=== PATIENT | female | born 1955 | race Caucasian/White ===

== ENCOUNTER 2025-03-16 08:53 | Day surgery (SDC) | payer MEDICARE, OTHER ==
[~2025-03-16] VITALS: Ht 170.2 cm; Wt 87.7 kg
[~2025-03-16 08:53] MED LIST: CeFAZolin Sodium 2,000 MG VIAL ONE
[2025-03-16] MEDS ORDERED: ROSUVASTATIN CA20 MG PO (09:05)
[2025-03-16] MEDS ORDERED: NS 500 ML IV ONE (09:22)
--- NOTE | 2025-03-16 09:44 | NUR ---
03/16/25 0944 Clarisse Villalpando TIME OUT DONE PRIOR TO LOCAL INJECTION WITH DR BROWN. LIDOCAINE 1% WITH EPI 1:100,000 AT OP SITE.
[2025-03-16] MEDS ORDERED: Sodium Bicarb 8.4% Inj 1 MEQ/ML 10ML Vial XX ONE (10:15)
[2025-03-16] MEDS ORDERED: Lidocaine 1%-Epineph 1:100000 20 ML MDV INJ ONE (10:15)
[2025-03-16 10:24] VITALS: BP 104/59
--- NOTE | 2025-03-16 10:50 | NUR ---
03/16/25 1050 SONYA BANKS AT [facility] FOR [facility] TEACHING
== END 2025-03-16 10:51 | disposition home or self-care (01) ==
LOC: ORSCSDS 08:53
PROVIDERS: Orthopaedic Surgery
PROC: 0LN70ZZ Release Right Hand Tendon, Open Approach (ICD-10-PCS; principal; 2025-03-16 09:45)
DX: M65.342 Trigger finger, left ring finger (principal); E11.9 Type 2 diabetes mellitus without complications; E78.5 Hyperlipidemia, unspecified; G47.33 Obstructive sleep apnea (adult) (pediatric); Z79.899 Other long term (current) drug therapy
CPT/HCPCS: 82947; J0690; J2704; J7040